=== PATIENT | male | born 1970 | race Caucasian/White ===

== ENCOUNTER 2016-08-09 09:33 | Day surgery (SDC) | payer OTHER ==
--- NOTE | 2016-07-17 09:32 | HP ---
DATE OF SURGERY: 08/09/16. REASON FOR ADMISSION: Right inguinal hernia. BRIEF HISTORY: This is a 46-year-old gentleman whose history dates back approximately 17 years ago when he first developed nonspecific discomfort in the right groin region. He was evaluated by several physicians at that time and told that he had abdominal wall weakness but no obvious hernia. In any event, the patient's discomfort persisted for the past 17 years. Over the past 5 months he noticed a bulge in the right groin region. Patient now is complaining of having a lump in the right groin that is painful. Prior to this lump showing up, the patient had complaints of pain in the deep part of the right groin actually in the right very medial proximal thigh, more muscular in nature. He also had complaints of discomfort upon ejaculation on both sides as well. The patient also admits to have discomfort in the left groin of a vague nature that is episodic. There is no aggravating or relieving factors for the left groin. Patient has no change in bowel habits, no nausea, no vomiting. PAST MEDICAL HISTORY: Significant for hypertension, which was recently diagnosed. Patient has a history of acne, rosacea, and tinnitus. PAST SURGICAL HISTORY: Patient has had arthroscopic right shoulder surgery. ALLERGIES: None. MEDICATION: Patient takes a medicine for his acne, and occasionally a cold sore medication for his lip as needed. SOCIAL HISTORY: He does not smoke. He drinks socially. PHYSICAL EXAMINATION: Patient examined direct and supine position. He was placed through multiple Valsalva maneuvers. He has an obvious moderate to large right inguinal hernia which is reducible in the supine position. The right scrotum and testicle is within normal limits. He has a small umbilical hernia noted which is an old finding. On the left side, he has no obvious hernia, some laxity noted. A small hernia cannot be ruled out. The left scrotum, testicle is within normal limits as well. IMPRESSION/PLAN: Right inguinal hernia: This is a 46-year-old gentleman with a chronic right inguinal hernia now with an acute presentation of pain and enlargement. At this point, I would recommend proceeding with a laparoscopic right inguinal hernia repair, at the time of laparoscopy left side should be examined as well given the questionable finding on physical examination preoperatively. If a left inguinal hernia is noted, it will be repaired. If no hernia noted, a piece of mesh will be left in direct inguinal space for reinforcement of the floor. The indications, alternatives, complications of procedure have been discussed. Questions have been answered. Will plan to obtain written consent on the day of surgery. ALEXIA VILLALOBOS M.D. [id number] cc: Dr. Cleve Burris, [facility], [address] [place] [address], [facility]
[2016-08-07 18:10] VITALS: BMI 27.1
[~2016-08-09 09:33] MED LIST: ceFAZolin SODIUM 1 GM VIAL IVPB ONE
[2016-08-09] MEDS ORDERED: TAMSULOSIN HCL 0.4 MG CAP.ER.24H (FP) ONE (10:12)
[2016-08-09] MEDS ORDERED: ceFAZolin SODIUM 1 GM VIAL ONE (10:12)
[2016-08-09] MEDS ORDERED: MIDAZOLAM HCL 2 MG/2 ML SINGLE DOSE VIAL ONE ×2 (10:54)
[2016-08-09] MEDS ORDERED: PROPOFOL 20 ML ONE ×3 (12:13→12:58)
[2016-08-09] MEDS ORDERED: ROCURONIUM BROMIDE 50 MG/5 ML VIAL ONE ×2 (12:14→12:44)
[2016-08-09] MEDS ORDERED: ceFAZolin SODIUM 1 GM VIAL IVPB ONE (12:29)
[2016-08-09] MEDS ORDERED: HYDROmorphone HCL/PF 1 MG/ML VIAL (FOR PYXIS CHARGING ONLY) ONE (12:54)
[2016-08-09] MEDS ORDERED: NEOSTIGMINE METHYLSULFATE 0.5 MG/ML - 10 ML MDV ONE (13:02)
[2016-08-09] MEDS ORDERED: GLYCOPYRROLATE 0.2 MG/1 ML VIAL ONE (13:06)
[2016-08-09] MEDS ORDERED: LACTATED RINGERS SOLUTION 1,000 ML IV SCH (13:45)
[2016-08-09] MEDS ORDERED: oxyCODONE HCL 5 MG TABLET PO PRN ×2 (13:45)
[2016-08-09] MEDS ORDERED: ONDANSETRON 4 MG/2 ML VIAL IVPUSH PRN (13:45)
[2016-08-09 14:49] VITALS: TEMP 97.7
[2016-08-09 19:17] VITALS: BP 146/78; PULSE 74
--- NOTE | 2016-08-09 23:42 | OP ---
DATE OF OPERATION: 08/09/2016 PREOPERATIVE DIAGNOSIS: Right inguinal hernia. POSTOPERATIVE DIAGNOSIS: Right indirect inguinal hernia, left indirect inguinal hernia. PROCEDURE: Laparoscopic bilateral herniorrhaphy with mesh. SURGEON: Theodore Raya M.D. DRIVER: nAdrey Wilks D.O. ANESTHESIOLOGIST: Oliva Almaraz M.D. (general) ANESTHESIA: General. ESTIMATED BLOOD LOSS: Minimal. SPECIMEN: None. INDICATION FOR PROCEDURE: This is a 46-year-old gentleman who 17 years ago developed pain in the right groin region, and since that time he has had progressive discomfort associated with a bulge. On physical examination, he has an obvious right inguinal hernia, and I suspect he probably has a left as well. He also is mildly symptomatic now on the left. DESCRIPTION OF PROCEDURE: Patient is identified, and appropriately positioned on operating room table. After placement of general anesthesia, the abdomen prepped and draped in the usual sterile fashion with Chloraprep. An infraumbilical incision was made, deepened through the subcutaneous tissue. The fascia of the rectus muscle on the right identified, divided sharply, and the muscle split. Under direct vision a dissector balloon, followed by a structural balloon placed. Also under direct vision a suprapubic 11-mm port placed. The following structures on the right side identified: pubic tubercle, Jasvir ligament, inferior epigastric vessels, spermatic cord, and lateral abdominal wall. During this dissection, patient is noted to have no direct component. The direct space was mildly attenuated. He had an indirect inguinal hernia. This was reduced back into preperitoneal space with blunt dissection. He had a moderate size cord lipoma that was reduced as well. A 4.5 x 6 piece of Versatex mesh was keyhole placed through the suprapubic port site. The mesh wrapped around the cord structure laterally to reconstruct the internal ring. Laterally, mesh anchored to the anterior abdominal wall and lateral abdominal wall. Medially, mesh anchored to anterior abdominal wall, pubic tubercle, and Jasvir ligament. Upon completion of right side, similar structure on the left side identified. On the left side he was noted to have no direct issues. He had a small indirect inguinal hernia sac, this reduced back into preperitoneal space with blunt dissection. Another 4.5 x 6 piece of Versatex mesh was keyhole placed through the suprapubic port site. The mesh wrapped around the cord structure laterally to reconstruct the internal inguinal ring. Laterally, the mesh anchored to the anterior abdominal wall and lateral abdominal wall. Medially, the mesh was well overlapped in the midline, anchored to anterior abdominal wall, pubic tubercle, and Jasvir ligament. All anterior abdominal wall, lateral abdominal wall anchors were placed under direct confirmation. The ports were removed. Port sites were hemostatic. The fascia at the suprapubic port site identified, and infraumbilical port site were approximated with interrupted 3-0 Vicryl suture. All skin closed with 4-0 subcuticular Biosyn followed by Dermabond. At the conclusion of this case, sponge and instrument counts were correct. ATTESTATION: Brief operative note handwritten on the preprinted form. [facility] queried prior to giving any narcotics. The prescription will be done electronically. Temo MARINELLI [id number] cc: Dr. Cleve Burris, [facility]
== END 2016-08-09 19:17 | disposition home or self-care (01) ==
LOC: JASU-SURG 09:33
PROVIDERS: ATTEND Surgery
PROC: 0YUA4JZ Supplement Bilateral Inguinal Region with Synthetic Substitute, Percutaneous Endoscopic Approach (ICD-10-PCS; principal; 2016-08-09 11:00)
DX: K40.20 Bilateral inguinal hernia, without obstruction or gangrene, not specified as recurrent (principal)
CPT/HCPCS: 94760